=== PATIENT | male | born 1985 | race African-American/Black ===

== ENCOUNTER 2022-05-18 12:31 | Emergency (ER) | payer SELFPAY ==
[~2022-05-18] VITALS: Ht 170.2 cm; Wt 79.4 kg
[2022-05-18 13:29] LABS: BILIRUBIN,URINE NEGATIVE (NEGATIVE); COLOR,URINE DARK YELLOW (YELLOW); LEUKOCYTE ESTERASE ,URINE NEGATIVE (NEGATIVE); NITRITE, URINE NEGATIVE (NEGATIVE); PH,URINE 5.5 (5.0-8.0); PROTEIN,URINE TRACE mg/dl (NEGATIVE); UGLUCOSE NEGATIVE (NEGATIVE); UROBILINOGEN,URINE 0.2 EU/dL (0.2)
[2022-05-18 14:05] LABS: RBC,URINE 0-2 /HPF (0-2)
[2022-05-18 14:06] LABS: BACTERIA,URINE Rare /HPF (None Seen); SQUAMOUS EPITHELIAL CELL,UR Few /HPF (None Seen)
[2022-05-18] MEDS ORDERED: CEFTRIAXONE 500 MG VIAL ONE (14:25)
[2022-05-18] MEDS ORDERED: AZITHROMYCIN 250 MG TABLET ONE (14:25)
[2022-05-18] MEDS ORDERED: LIDOCAINE /MPF 1% VIAL 5 ML VIAL ONE (14:26)
[2022-05-18] MEDS: CEFTRIAXONE 500 MG VIAL IM ONE (14:39)
[2022-05-18] MEDS: AZITHROMYCIN 250 MG TABLET PO ONE (14:40)
--- NOTE | 2022-05-18 14:45 | NUR ---
seen and evaluated by dr butterfield. medicated as ordered. discharged home in stable condition.
[2022-05-18 14:46] VITALS: BP 126/83
== END 2022-05-18 14:46 | disposition home or self-care (01) ==
LOC: ER 12:36
DX: A64 Unspecified sexually transmitted disease (principal)
CPT/HCPCS: 99283; 96372; 87086; 81001; 87491; 87591; J0696; J3490